=== PATIENT | female | born 1980 | race Caucasian/White ===

== ENCOUNTER 2017-12-14 18:37 | Emergency (ER) | payer SELFPAY ==
[~2017-12-14] VITALS: Ht 165.1 cm; Wt 79.4 kg
--- NOTE | 2017-12-14 18:55 | ED.ADGEN ---
Adult General Chief Complaint Chief Complaint ".. I caught my foot between the payment edge and fell on this Lt elbow... " HPI HPI Patient is a 37 year old female who presents with above hx and complaints of contusion to Lt elbow and wrist a fall. Pt. is Rt. hand dominate. No other injuries reported. Distal neurovascular intact. Pain in Rt elbow with inversion and pronation. Pain with flexion and extension. Small abrasion at elbow Lt.. Small abrasion contusion Rt 5th finger. Review of Systems Review of Systems Constitutional: Denies fever or chills [] Eyes: Denies change in visual acuity, redness, or eye pain [] HENT: Denies nasal congestion or sore throat [] Respiratory: Denies cough or shortness of breath [] Cardiovascular: No additional information not addressed in HPI [] GI: Denies abdominal pain, nausea, vomiting, bloody stools or diarrhea [] : Denies dysuria or hematuria [] Musculoskeletal: Denies back pain or joint pain []Injury to Lt. elbow, and Rt. 5th finger. Lt. wrist pain. Integument: Denies rash or skin lesions [] Neurologic: Denies headache, focal weakness or sensory changes [] Endocrine: Denies polyuria or polydipsia [] All other systems were reviewed and found to be within normal limits, except as documented in this note. Family History Family History Non-contributory Current Medications Current Medications Current Medications Medications (Trade) Dose Ordered Sig/[facility] Start Time Stop Time Status Last Admin Dose Admin Ketorolac Tromethamine (Toradol) 60 mg 1X ONCE 12/14/17 19:15 12/14/17 19:16 DC 12/14/17 19:22 60 MG See nursing for home meds. Allergies Allergies Allergies Coded Allergies Type Severity Reaction Last Updated Verified No Known Drug Allergies 12/14/17 No Physical Exam Physical Exam Constitutional: Well developed, well nourished, no acute distress, non-toxic appearance. [] HENT: Normocephalic, atraumatic, bilateral external ears normal, oropharynx moist, no oral exudates, nose normal. [] Eyes: PERRLA, EOMI, conjunctiva normal, no discharge. [] Neck: Normal range of motion, no tenderness, supple, no stridor. [] Cardiovascular:Heart rate regular rhythm, no murmur [] Lungs & Thorax: Bilateral breath sounds clear to auscultation [] Abdomen: Bowel sounds normal, soft, no tenderness, no masses, no pulsatile masses. [Obese. Skin: Warm, dry, no erythema, no rash. [] Back: No tenderness, no CVA tenderness. [] Extremities: No tenderness, no cyanosis, no clubbing, ROM intact, no edema. Except findings in [] Lt. elbow, wrist and rt fifth finger contusion. Neurologic: Alert and oriented X 3, normal motor function, normal sensory function, no focal deficits noted. [] Psychologic: Affect anxious, judgement normal, mood normal. [] Current Patient Data Vital Signs Vital Signs Date Time Temp Pulse Resp B/P (MAP) Pulse Ox O2 Delivery O2 Flow Rate FiO2 12/14/17 20:20 89 16 131/83 (99) 98 Room Air 12/14/17 18:43 98.3 EKG EKG [] Radiology/Procedures Radiology/Procedures My interpretation of Lt elbow and wrist. No obvious fx. , questionable area Rt. proximal radial head. [] Course & Med Decision Making Course & Med Decision Making Pertinent Labs and Imaging studies reviewed. (See chart for details). Wear derek, and sling. Elevation. ice packs as needed for discomfort. Take tylenol and ibuprofen for discomfort. Follow up with primary. Return if any concerns. May have frx of proximal radial head. Repeat X-ray in two weeks may identify a callus from a fx. [] Final Impression Final Impression 1. Lt. elbow contusion[] and Sprain 2. Lt wrist sprain 3. Rt 5th. contusion Problems: Dragon Disclaimer Dragon Disclaimer This electronic medical record was generated, in whole or in part, using a voice recognition dictation system. JULIANE POP MD Dec 14, 2017 18:55
[2017-12-14] MEDS ORDERED: KETOROLAC 60 MG/2 ML VIAL. IM ONE (19:15)
[2017-12-14] MEDS ORDERED: HYDR-79 PO (19:34)
[2017-12-14 20:20] VITALS: BP 131/83
--- NOTE | 2017-12-15 09:38 | RAD ---
Left elbow x-rays 3 views History: Fall injury. Findings: No abnormal elevation of the fat pads to suggest a joint effusion. No fracture, dislocation or arthritic change. The soft tissues are unremarkable. Impression: No acute osseous injury.
--- NOTE | 2017-12-15 09:40 | RAD ---
Left hand x-rays 3 views History: Fall injury. Findings: On the lateral film at the dorsal aspect of the proximal carpal row and radius there is a faint 2 mm calcification could represent a chronic ossicle although a small cortical avulsion fracture is not excluded, there is no donor site from the adjacent bone to confirm a fracture. No fracture or dislocation of the hand evident. Impression: No acute osseous injury of the left hand. 2 mm calcification dorsal of the proximal carpal row as described above.
== END 2017-12-14 20:25 | disposition home or self-care (01) ==
LOC: ER 18:37
DX: S53.402A Unspecified sprain of left elbow, initial encounter (principal); S63.502A Unspecified sprain of left wrist, initial encounter; S60.051A Contusion of right little finger without damage to nail, initial encounter; W19.XXXA Unspecified fall, initial encounter; Y93.89 Activity, other specified; Y99.8 Other external cause status; Y92.89 Other specified places as the place of occurrence of the external cause
CPT/HCPCS: 73080; 73130; 96372; 99284; J1885

== ENCOUNTER 2018-07-13 17:16 | Emergency (ER) | payer SELFPAY ==
[~2018-07-13] VITALS: Ht 165.1 cm; Wt 79.4 kg
[~2018-07-13 17:16] MED LIST: HYDR-79 PO
[2018-07-13] MEDS ORDERED: IV NORMAL SALINE 1,000ML 1,000 ML IV SCH (17:42)
--- NOTE | 2018-07-13 17:58 | PHYS DOC ---
Past History Past Medical History: Kidney Stones Past Surgical History: Cholecystectomy, , Tubal ligation, Other Alcohol Use: None Drug Use: None Adult General Chief Complaint Chief Complaint: FLANK PAIN HPI HPI Patient is a 37 year old female who presents with complaining onset of right flank pain about 45 minutes prior to arrival to ER as a constant and sharp pain with radiation to right lower quadrant and rated her pain 8/10 area patient denies nausea and vomiting and urinary symptom. Patient states she had the same pain with previous episodes of kidney stone. Patient states she had 1 episodes of loose stool on over before starting her pain and denies fever and chills, chest pain, shortness of breath. Review of Systems Review of Systems Constitutional: Denies fever or chills [] Eyes: Denies change in visual acuity, redness, or eye pain [] HENT: Denies nasal congestion or sore throat [] Respiratory: Denies cough or shortness of breath [] Cardiovascular: No additional information not addressed in HPI [] GI: Reports abdominal pain, denies nausea, vomiting, bloody stools : Denies dysuria or hematuria , reports flank pain] Musculoskeletal: Denies back pain or joint pain [] Integument: Denies rash or skin lesions [] Neurologic: Denies headache, focal weakness or sensory changes [] Endocrine: Denies polyuria or polydipsia [] All other systems were reviewed and found to be within normal limits, except as documented in this note. Current Medications Current Medications Current Medications Medications (Trade) Dose Ordered Sig/[facility] Start Time Stop Time Status Last Admin Dose Admin Ketorolac Tromethamine (Toradol 30mg Vial) 30 mg 1X ONCE 07/13/18 18:15 07/13/18 18:16 Ondansetron HCl (Zofran) 4 mg 1X ONCE 07/13/18 18:15 07/13/18 18:16 Sodium Chloride 1,000 ml @ 1,000 mls/hr Q1H 07/13/18 17:42 07/13/18 18:41 Allergies Allergies Allergies Coded Allergies Type Severity Reaction Last Updated Verified No Known Drug Allergies 12/14/17 No Physical Exam Physical Exam Constitutional: Well developed, well nourished, mild distress, non-toxic appearance. [] HENT: Normocephalic, atraumatic Eyes: PERRLA, EOMI, conjunctiva normal, no discharge. [] Neck: Normal range of motion, no tenderness, supple, no stridor. [] Cardiovascular:Heart rate regular rhythm, no murmur [] Lungs & Thorax: Bilateral breath sounds clear to auscultation [] Abdomen: Bowel sounds normal, soft, no tenderness, no masses, no pulsatile masses. [] Skin: Warm, dry, no erythema, no rash. [] Back: No tenderness, no CVA tenderness. [] Extremities: No tenderness, no cyanosis, no clubbing, ROM intact, no edema. [] Neurologic: Alert and oriented X 3, normal motor function, normal sensory function, no focal deficits noted. [] Psychologic: Affect anxious, judgement normal, mood normal. [] Current Patient Data Vital Signs Vital Signs Date Time Temp Pulse Resp B/P (MAP) Pulse Ox O2 Delivery O2 Flow Rate FiO2 07/13/18 17:28 98.2 89 18 100 Room Air EKG EKG [] Radiology/Procedures Radiology/Procedures [] 1. Bilateral nephrolithiasis with the largest measuring 8 mm in the right kidney. There is minimal fat stranding identified about the right kidney. Correlate for mild pyelonephritis. 2. Faint fat stranding identified about the pancreas probably due to breathing motion artifact and less likely pancreatitis. Correlate with lab values. Impressions: kidney stones Course & Med Decision Making Course & Med Decision Making Pertinent Labs and Imaging are pending. Evaluation of patient in ER showed 37-year-old female patient with history of previous kidney stone presented to ER with complaining of sudden onset of right flank pain. Patient has pending labs and CT of abdomen and pelvis. Patient care transferred to Dr. Pruitt at 1800. Dragvika Disclaimer Dragon Disclaimer This electronic medical record was generated, in whole or in part, using a voice recognition dictation system. Departure Departure: Impression: Primary Impression: Right flank pain Referrals: PCP,NO (PCP) Scripts Hydrocodone Bit/Acetaminophen (NORCO 5-325 TABLET) 1 Each Tablet 1-2 TAB PO Q4-6HRS for pain, #40 TAB Prov: TRINA PRUITT MD 07/13/18 SATINDER VALLES MD Jul 13, 2018 17:58 TRINA PRUITT MD Jul 13, 2018 19:04
[2018-07-13 18:12] LABS: BASO # 0.1 x10^3/uL (0.0-0.2); BASO % 1 % (0-3); EOS # 0.3 x10^3/uL (0.0-0.7); EOS % 4 % (0-3); HEMATOCRIT 26.4 % (36.0-47.0); HEMOGLOBIN 7.8 g/dL (12.0-15.5); LYMPH % 24 % (24-48); MEAN CORPUSCULAR HEMOGLOBIN 18 pg (25-35); MEAN CORPUSCULAR HGB CONC 30 g/dL (31-37); MEAN CORPUSCULAR VOLUME 61 fL (79-100); MONO % 12 % (0-9); NEUT # 5.1 x10^3uL (1.8-7.7); NEUT % 60 % (31-73); PLATELET COUNT 237 x10^3/uL (140-400); RED BLOOD COUNT 4.29 x10^6/uL (3.50-5.40); RED CELL DISTRIBUTION WIDTH 20.8 % (11.5-14.5); WHITE BLOOD COUNT 8.4 x10^3/uL (4.0-11.0)
[2018-07-13 18:14] LABS: BACTERIA,URINE 0 /HPF (0-FEW); BILIRUBIN,URINE NEG (NEG); CLARITY,URINE CLOUDY; COLOR,URINE YELLOW; GLUCOSE,URINE NEG (NEG); NITRITE,URINE NEG (NEG); RBC,URINE 20-40 /HPF (0-2); UROBILINOGEN,URINE 0.2 mg/dL (0.2 mg/dL); WBC,URINE 0 /HPF (0-4)
[2018-07-13 18:15] LABS: SQUAMOUS EPITHELIAL CELL,UR OCC /LPF
[2018-07-13] MEDS ORDERED: ONDANSETRON PF 4 MG/2 ML VIAL. IV ONE (18:15)
[2018-07-13] MEDS ORDERED: KETOROLAC 30 MG/ML VIAL. IV ONE (18:15)
[2018-07-13 18:26] LABS: ALBUMIN 3.8 g/dL (3.4-5.0); ALBUMIN/GLOBULIN RATIO 1.1 (1.0-1.7); CALCIUM 8.8 mg/dL (8.5-10.1); CREATININE 0.8 mg/dL (0.6-1.0); GFR 81.2; TOTAL BILIRUBIN 0.2 mg/dL (0.2-1.0); TOTAL PROTEIN 7.3 g/dL (6.4-8.2)
--- NOTE | 2018-07-13 18:26 | RAD ---
Examination: CT of the abdomen pelvis without contrast HISTORY: History of right flank pain COMPARISON: None available TECHNIQUE: Axial CT images of the abdomen pelvis were performed without contrast. Coronal and sagittal reformats are performed Exposure: One or more of the following individualized dose reduction techniques were utilized for this examination: 1. Automated exposure control 2. Adjustment of the mA and/or kV according to patient size 3. Use of iterative reconstruction technique FINDINGS: Minimal bibasilar lung atelectasis. No evidence of free air identified in the abdomen. The visualized noncontrasted liver, spleen, adrenals grossly appears unremarkable. Cholecystectomy clips identified. The stomach is mildly distended. Questionable minimal fat stranding identified about the pancreas. The small bowel is nondilated. The appendix is normal. Feces and gas noted in the colon throughout. Urinary bladder is mildly distended. There are multiple intrarenal collecting system calculi identified in the bilateral kidneys with the largest measuring 8 mm on the right. Minimal fat stranding identified about the right kidney. No evidence of hydronephrosis. No evidence of lytic bony destructive lesion. IMPRESSION: 1. Bilateral nephrolithiasis with the largest measuring 8 mm in the right kidney. There is minimal fat stranding identified about the right kidney. Correlate for mild pyelonephritis. 2. Faint fat stranding identified about the pancreas probably due to breathing motion artifact and less likely pancreatitis. Correlate with lab values. Electronically signed by: Roney Charles MD (07/13/2018 6:23 PM) [facility]
[2018-07-13 18:28] LABS: POTASSIUM 4.2 mmol/L (3.5-5.1)
[2018-07-13 18:42] LABS: ANISOCYTOSIS SLIGHT; HYPOCHROMIA MOD; PLT ESTIMATE ADEQUATE (ADEQUATE); POLYCHROMASIA SLIGHT
[2018-07-13 18:43] LABS: MICROCYTOSIS MOD; OVALOCYTES OCC; SCHISTOCYTES OCC; SPHEROCYTES OCC; TEAR DROP CELLS OCC
[2018-07-13] MEDS ORDERED: HYDROmorphone PF 1 MG/ML DISP.SYRIN IV ONE (19:00)
[2018-07-13] MEDS ORDERED: HYDR-3165 PO (19:02)
[2018-07-13 19:19] VITALS: BP 107/56
== END 2018-07-13 19:29 | disposition home or self-care (01) ==
LOC: ER 17:16
DX: N20.0 Calculus of kidney (principal); R19.7 Diarrhea, unspecified; Z87.442 Personal history of urinary calculi; Z90.49 Acquired absence of other specified parts of digestive tract; Z98.890 Other specified postprocedural states; Z98.51 Tubal ligation status
CPT/HCPCS: 36415; 74176; 80053; 81001; 83690; 85025; 96361; 96374; 96375; 99285; J1170; J1885; J2405; J7030

== ENCOUNTER 2018-08-29 08:52 | Emergency (ER) | payer SELFPAY ==
[~2018-08-29] VITALS: Ht 165.1 cm; Wt 81.6 kg
[~2018-08-29 08:52] MED LIST changes: +HYDR-1179 PO; +HYDR-3165 PO; -HYDR-79 PO
[2018-08-29 09:09] VITALS: BP 114/70
--- NOTE | 2018-08-29 09:24 | RAD ---
EXAM: AP, oblique and lateral views of the left knee DATE: 08/29/2018 9:07 AM INDICATION: KNEE AND HAND PAIN S/P FALL COMPARISON: No Prior FINDINGS: No evidence of acute fracture or dislocation. Joint spaces are preserved without significant degenerative/proliferative change. Trace left knee joint effusion. IMPRESSION: No evidence of acute fracture or dislocation. Electronically signed by: Melo Lezama MD (08/29/2018 9:20 AM) [facility]
--- NOTE | 2018-08-29 09:31 | RAD ---
EXAM: PA, oblique and lateral views of the right hand DATE: 08/29/2018 9:12 AM INDICATION: HAND AND KNEE PAIN S/P FALL COMPARISON: Left hand radiographs 12/14/2017 FINDINGS: Hyperextension of the right small finger MCP joint is grossly similar to the contralateral side on prior imaging 12/14/2017 and may be physiologic for this patient. Soft tissue swelling about the right ring and index fingers is seen. No definite associated fracture or retained foreign body. Joint spaces are preserved without significant degenerative/proliferative change. IMPRESSION: 1. Soft tissue swelling about the right index and ring fingers without associated fracture or definite retained foreign body. 2. Of note there is hyperextension at the right fifth MCP joint. This is similar to the prior images on the left hand and may be physiologic for this patient. Electronically signed by: Melo Lezama MD (08/29/2018 9:27 AM) [facility]
[2018-08-29] MEDS ORDERED: TRAM50TA PO (09:34)
--- NOTE | 2018-08-29 09:35 | PHYS DOC ---
Past History Past Medical History: Kidney Stones Past Surgical History: Cholecystectomy, , Tubal ligation, Other Alcohol Use: None Drug Use: None Adult General Chief Complaint Chief Complaint: KNEE INJURY HPI HPI 37-year-old female presents with report of left knee pain status post mechanical trip and fall which occurred last night. Patient reports she had gotten up in the middle of the night and ended up tripping and came down directly onto her knee. Reports pain with ambulation and bearing weight. Patient also reports tried to catch herself with her right hand and thinks she might have injured her right ring finger. Patient does report some swelling and bruising to right ring finger. Denies laceration. Denies head injury or neck pain. Denies loss of consciousness. Denies . Reports history of tubal ligation. Review of Systems Review of Systems Constitutional: Denies fever or chills [] GI: Denies nausea, vomiting : Denies dysuria or hematuria [] Musculoskeletal: Reports left knee pain and right ring finger Integument: Reports contusion and ecchymosis Neurologic: Denies headache, focal weakness or sensory changes [] Complete systems were reviewed and found to be within normal limits, except as documented in this note. Current Medications Current Medications Current Medications Medications (Trade) Dose Ordered Sig/[facility] Start Time Stop Time Status Last Admin Dose Admin Tramadol HCl (Ultram) 50 mg 1X ONCE 08/29/18 09:45 08/29/18 09:46 Allergies Allergies Allergies Coded Allergies Type Severity Reaction Last Updated Verified No Known Drug Allergies 12/14/17 No Physical Exam Physical Exam Constitutional: Well developed, well nourished, no acute distress, non-toxic appearance. [] HENT: Normocephalic, atraumatic Eyes: Conjunctiva normal, no discharge. [] Neck: Normal range of motion, no tenderness, supple, no meningeal signs Cardiovascular: R radial pulse and L PT/DP +2/4, CR < 2 sec Lungs & Thorax: No respiratory distress Skin: Warm, dry, mild swelling and ecchymosis to right PIP of 4th finger Extremities: Pain to palpation and ROM of left knee, joint intact, no laxity noted, no ecchymosis or swelling, small abrasion noted, tenderness to lateral aspect of knee, Right ring finger tendon function intact, tenderness to PIP and with some mild swelling and ecchymosis Neurologic: Alert and oriented X 3, normal motor function, normal sensory function, no focal deficits noted. [] Psychologic: Affect normal, judgement normal, mood normal. [] Current Patient Data Vital Signs Vital Signs Date Time Temp Pulse Resp B/P (MAP) Pulse Ox O2 Delivery O2 Flow Rate FiO2 08/29/18 09:09 98.2 88 18 100 Room Air EKG EKG [] Radiology/Procedures Radiology/Procedures PROCEDURE: KNEE LEFT 3V EXAM: AP, oblique and lateral views of the left knee DATE: 08/29/2018 9:07 AM INDICATION: KNEE AND HAND PAIN S/P FALL COMPARISON: No Prior FINDINGS: No evidence of acute fracture or dislocation. Joint spaces are preserved without significant degenerative/proliferative change. Trace left knee joint effusion. IMPRESSION: No evidence of acute fracture or dislocation. Electronically signed by: Melo Lezama MD (08/29/2018 9:20 AM) [facility] PROCEDURE: HAND RIGHT 3V EXAM: PA, oblique and lateral views of the right hand DATE: 08/29/2018 9:12 AM INDICATION: HAND AND KNEE PAIN S/P FALL COMPARISON: Left hand radiographs 12/14/2017 FINDINGS: Hyperextension of the right small finger MCP joint is grossly similar to the contralateral side on prior imaging 12/14/2017 and may be physiologic for this patient. Soft tissue swelling about the right ring and index fingers is seen. No definite associated fracture or retained foreign body. Joint spaces are preserved without significant degenerative/proliferative change. IMPRESSION: 1. Soft tissue swelling about the right index and ring fingers without associated fracture or definite retained foreign body. 2. Of note there is hyperextension at the right fifth MCP joint. This is similar to the prior images on the left hand and may be physiologic for this patient. Electronically signed by: Melo Lezama MD (08/29/2018 9:27 AM) [facility] Course & Med Decision Making Course & Med Decision Making Pertinent Labs and Imaging studies reviewed. (See chart for details) [] Dragon Disclaimer Dragon Disclaimer This electronic medical record was generated, in whole or in part, using a voice recognition dictation system. Splinting Splinting : Location: Right ring finger Pre-Made Type: metal (finger splint) Pre-Proc Neuro Vasc Exam: normal Post-Proc Neuro Vasc Exam: normal, unchanged from pre-exam Progress Splint #2 Left knee, BRANDI bandage placed, normal pre and post neuro-vascular exam Departure Departure: Impression: Primary Impression: Contusion of knee, left Additional Impression: Sprain of finger of right hand Disposition: 01 HOME, SELF-CARE Condition: STABLE Referrals: PCPMICHEAL (PCP) RAVINDRA MCCOLLUM MD Patient Instructions: Contusion, [id number], Crutch Use, [id number], Finger Sprain, [id number], Knee Pain, [id number] Scripts Tramadol Hcl (TRAMADOL HCL) 50 Mg Tablet 50 MG PO PRN Q6HRS PRN for PAIN, #10 TAB Prov: GEOVANNA HAMMOND DO 08/29/18 Problem Qualifiers Primary Impression: Contusion of knee, left Encounter type: initial encounter Qualified Codes: S80.02XA - Contusion of left knee, initial encounter Additional Impression: Sprain of finger of right hand Encounter type: initial encounter Finger: ring finger Sprain of finger site : interphalangeal joint Qualified Codes: S63.634A - Sprain of interphalangeal joint of right ring finger, initial encounter GEOVANNA HAMMOND DO Aug 29, 2018 09:34
[2018-08-29] MEDS ORDERED: traMADol 50 MG TABLET PO ONE (09:45)
== END 2018-08-29 09:45 | disposition home or self-care (01) ==
LOC: ER 08:52
DX: S63.634A Sprain of interphalangeal joint of right ring finger, initial encounter (principal); S80.02XA Contusion of left knee, initial encounter; Z87.442 Personal history of urinary calculi; W01.0XXA Fall on same level from slipping, tripping and stumbling without subsequent striking against object, initial encounter; Y93.89 Activity, other specified; Y92.89 Other specified places as the place of occurrence of the external cause; Y99.8 Other external cause status
CPT/HCPCS: 29130; 73130; 73562; 99283

== ENCOUNTER 2018-11-23 13:54 | Emergency (ER) | payer OTHER ==
[~2018-11-23] VITALS: Ht 165.1 cm; Wt 81.6 kg
[~2018-11-23 13:54] MED LIST changes: +TRAM50TA PO
--- NOTE | 2018-11-23 14:49 | RAD ---
Lumbar spine 3 views: Reason for examination: Twisted in shower on 11/22/2018 and now with severe low back pain. The vertebral bodies of the lumbar spine appear to be normally aligned anteriorly and posteriorly. No acute fracture or subluxation is seen. Posterior elements appear to be intact. The intervertebral discs are maintained. No abnormality seen at the sacrum or sacroiliac joints. IMPRESSION: No acute abnormality evident in the lumbar spine. Electronically signed by: Sandy Duke MD (11/23/2018 2:46 PM) [facility]
[2018-11-23] MEDS ORDERED: CYCL-331 PO (14:52)
[2018-11-23] MEDS ORDERED: PRED-220 PO (14:52)
--- NOTE | 2018-11-23 14:53 | PHYS DOC ---
Past History Past Medical History: Kidney Stones Past Surgical History: Cholecystectomy, , Tubal ligation, Other Alcohol Use: None Drug Use: None Adult General Chief Complaint Chief Complaint: BACK PAIN OR INJURY [facility] HPI 38-year-old female presents with lumbar back pain. The patient was bending over the shower yesterday evening when she felt a pulling sensation. She then stood up and had a spasm in the low part of her back on both sides. She now has an intermittent tingling in sensation down her posterior legs on both sides. This stops above the knee. Patient has a history of herniated disks in the lumbar. She has not had any trauma or falls recently. She has taken tramadol at home for pain but it does not help with muscle spasms. She does not currently use muscle relaxers. She denies fever or chills. She denies numbness or paresthesia in her perineal area. No loss of bowel or bladder. Review of Systems Review of Systems Constitutional: Denies fever or chills [] Eyes: Denies change in visual acuity, redness, or eye pain [] HENT: Denies nasal congestion or sore throat [] Respiratory: Denies cough or shortness of breath [] Cardiovascular: No additional information not addressed in HPI [] GI: Denies abdominal pain, nausea, vomiting, bloody stools or diarrhea [] : Denies dysuria or hematuria [] Musculoskeletal: Lumbar back pain[] Integument: Denies rash or skin lesions [] Neurologic: Denies headache, focal weakness or sensory changes [] Endocrine: Denies polyuria or polydipsia [] All other systems were reviewed and found to be within normal limits, except as documented in this note. Allergies Allergies Allergies Coded Allergies Type Severity Reaction Last Updated Verified No Known Drug Allergies 12/14/17 No Physical Exam Physical Exam Constitutional: Well developed, well nourished, no acute distress, non-toxic appearance. [] HENT: Normocephalic, atraumatic, bilateral external ears normal, oropharynx moist, no oral exudates, nose normal. [] Eyes: PERRLA, EOMI, conjunctiva normal, no discharge. [] Neck: Normal range of motion, no tenderness, supple, no stridor. [] Cardiovascular:Heart rate regular rhythm, no murmur [] Lungs & Thorax: Bilateral breath sounds clear to auscultation [] Abdomen: Bowel sounds normal, soft, no tenderness, no masses, no pulsatile masses. [] Skin: Warm, dry, no erythema, no rash. [] Back: Tenderness in the L4-L5 region. Paraspinal muscle spasms bilaterally in this area.[] Extremities: No tenderness, no cyanosis, no clubbing, ROM intact, no edema. [] Neurologic: Alert and oriented X 3, normal motor function, normal sensory function, no focal deficits noted. [] Psychologic: Affect normal, judgement normal, mood normal. [] Current Patient Data Vital Signs Vital Signs Date Time Temp Pulse Resp B/P (MAP) Pulse Ox O2 Delivery O2 Flow Rate FiO2 11/23/18 14:03 98.1 88 20 100 Room Air 11/23/18 14:03 136/69 (91) EKG EKG [] Radiology/Procedures Radiology/Procedures [] Impressions: Lumbar spine 3 views: Reason for examination: Twisted in shower on 11/22/2018 and now with severe low back pain. The vertebral bodies of the lumbar spine appear to be normally aligned anteriorly and posteriorly. No acute fracture or subluxation is seen. Posterior elements appear to be intact. The intervertebral discs are maintained. No abnormality seen at the sacrum or sacroiliac joints. IMPRESSION: No acute abnormality evident in the lumbar spine. Electronically signed by: Sandy Read MD (11/23/2018 2:46 PM) [facility] DICTATED AND SIGNED BY: SANDY READ MD DATE: 11/23/18 1446 CC: JIM MEDINA DO; PCP,MICHEAL ~ Course & Med Decision Making Course & Med Decision Making Pertinent Labs and Imaging studies reviewed. (See chart for details) Patient's x-rays are negative for acute findings. I will discharge the patient on 5 days of prednisone as well as Flexeril. She will take her already prescribed tramadol for pain as needed. She is stable for discharge at this time. [] Dragon Disclaimer Dragon Disclaimer This electronic medical record was generated, in whole or in part, using a voice recognition dictation system. Departure Departure: Impression: Primary Impression: Lumbar back pain with radiculopathy affecting left lower extremity Additional Impression: Lumbar back pain with radiculopathy affecting right lower extremity Disposition: 01 HOME, SELF-CARE Condition: STABLE Referrals: PCP,NO (PCP) Patient Instructions: Lumbosacral Radiculopathy Scripts Prednisone (PREDNISONE) 10 Mg Tablet 50 MG PO DAILY for lumbar radiculopathy for 5 Days, #25 TAB Prov: JIM MEDINA DO 11/23/18 Cyclobenzaprine Hcl (CYCLOBENZAPRINE HCL) 10 Mg Tablet 1 TAB PO TID PRN for MUSCLE SPASMS, #30 TAB Prov: JIM MEDINA DO 11/23/18 Problem Qualifiers JIM MEDINA DO Nov 23, 2018 14:53
== END 2018-11-23 15:00 | disposition home or self-care (01) ==
LOC: ER 13:54
DX: M54.16 Radiculopathy, lumbar region (principal); Z87.442 Personal history of urinary calculi; Z90.49 Acquired absence of other specified parts of digestive tract; Z98.890 Other specified postprocedural states; Z98.51 Tubal ligation status
CPT/HCPCS: 72100; 99283

== ENCOUNTER 2019-03-11 21:49 | Emergency (ER) | payer OTHER ==
[~2019-03-11] VITALS: Ht 165.1 cm; Wt 81.6 kg
[~2019-03-11 21:49] MED LIST changes: +CYCL-331 PO; +PRED-220 PO
[2019-03-11 22:11] VITALS: BP 121/53
[2019-03-11] MEDS ORDERED: KETOROLAC 30 MG/ML VIAL. IV ONE (22:30)
[2019-03-11 22:46] LABS: U PREG PATIENT NEGATIVE (NEG)
[2019-03-11 22:51] LABS: BACTERIA,URINE 0 /HPF (0-FEW); BILIRUBIN,URINE NEG (NEG); CLARITY,URINE CLOUDY; COLOR,URINE PINK; GLUCOSE,URINE NEG (NEG); NITRITE,URINE NEG (NEG); RBC,URINE >40 /HPF (0-2); SQUAMOUS EPITHELIAL CELL,UR OCC /LPF; UROBILINOGEN,URINE 0.2 mg/dL (0.2 mg/dL)
[2019-03-11] MEDS ORDERED: IV NORMAL SALINE 1,000ML 1,000 ML IV ONE (23:00)
[2019-03-11] MEDS ORDERED: METOCLOPRAMIDE HCL 10 MG/2 ML VIAL. IV ONE (23:00)
[2019-03-11 23:22] LABS: ALBUMIN/GLOBULIN RATIO 1.1 (1.0-1.7); CALCIUM 9.1 mg/dL (8.5-10.1); CREATININE 0.6 mg/dL (0.6-1.0); GFR 112.5; MAGNESIUM 2.1 mg/dL (1.8-2.4); TOTAL BILIRUBIN 0.2 mg/dL (0.2-1.0); TOTAL PROTEIN 7.7 g/dL (6.4-8.2)
[2019-03-11 23:40] LABS: BASO % 0 % (0-3); EOS # 0.5 x10^3/uL (0.0-0.7); EOS % 4 % (0-3); HEMATOCRIT 33.4 % (36.0-47.0); HEMOGLOBIN 9.8 g/dL (12.0-15.5); LYMPH # 2.4 x10^3/uL (1.0-4.8); LYMPH % 19 % (24-48); MEAN CORPUSCULAR HEMOGLOBIN 19 pg (25-35); MEAN CORPUSCULAR HGB CONC 29 g/dL (31-37); MEAN CORPUSCULAR VOLUME 64 fL (79-100); MONO # 1.3 x10^3/uL (0.0-1.1); MONO % 11 % (0-9); NEUT # 8.2 x10^3uL (1.8-7.7); NEUT % 66 % (31-73); PLATELET COUNT 234 x10^3/uL (140-400); RED BLOOD COUNT 5.21 x10^6/uL (3.50-5.40); RED CELL DISTRIBUTION WIDTH 20.9 % (11.5-14.5); WHITE BLOOD COUNT 12.4 x10^3/uL (4.0-11.0)
--- NOTE | 2019-03-11 23:46 | RAD ---
CT scan of the abdomen and pelvis without contrast 03/11/2019 CLINICAL HISTORY: Right flank pain. Hematuria. TECHNIQUE: Unenhanced, contiguous, 3 mm axial sections were obtained through the abdomen and pelvis. One or more of the following individualized dose reduction techniques were utilized for this study: 1. Automated exposure control. 2. Adjustment of the mA and/or kV according to patient size. 3. Use of iterative reconstruction technique. FINDINGS: Comparison study is dated 07/13/2018. Images through the lung bases demonstrate minimal dependent subsegmental atelectasis bilaterally. The liver, spleen, pancreas, and adrenal glands are within normal limits. Multiple nonobstructing calculi are seen scattered throughout both kidneys. These measure 1 mm to 8 mm in size. No renal or ureteral calculus is seen. There is no evidence of significant obstruction of either collecting system. The abdominal aorta tapers normally. Surgical clips are seen within the gallbladder fossa consistent with a cholecystectomy. No free fluid is seen. There is no evidence of bowel obstruction. The appendix is partially visualized and is within normal limits. Images through the pelvis demonstrate the urinary bladder distended with urine. A 2 cm prominent follicle is seen in the left ovary. No free fluid is seen within the pelvis. No distal ureteral calculus is seen. Calcifications are seen within the pelvis consistent with phleboliths. Minimal S-shaped curvature of the thoracolumbar spine is seen. Degenerative changes are seen involving lower thoracic and throughout the lumbar spine and both hips. IMPRESSION: Bilateral nonobstructing renal calculi. No ureteral calculus is seen. There is no evidence of significant obstruction of either collecting system. Electronically signed by: Saeid Tirado MD (03/11/2019 11:43 PM) [facility]
[2019-03-12] MEDS ORDERED: TRAM50TA PO
[2019-03-12] MEDS ORDERED: ONDA4TAB12 PO
--- NOTE | 2019-03-12 | PHYS DOC ---
Past History Past Medical History: Kidney Stones Past Surgical History: Cholecystectomy, , Tubal ligation, Other Smoking: Less than 1pk/day Alcohol Use: None Drug Use: None Adult General Chief Complaint Chief Complaint: FLANK PAIN HPI HPI Patient is a 38-year-old female who presents with right flank pain. He started around 2 hours ago located in the right flank and radiates around to her side to her right groin which she rates at 7/10. She reports hematuria. She has had urinary urgency, but denies burning with urination or increased frequency. She has had diarrhea this afternoon and is currently nauseated. In 2011 she needed a lithotripsy for a kidney stone. Denies . Review of Systems Review of Systems Constitutional: Denies fever or chills Eyes: Denies redness or eye pain HENT: Denies nasal congestion or sore throat Respiratory: Denies cough or shortness of breath Cardiovascular: Denies chest pain or palpitations GI: Reports abdominal pain, nausea, denies vomiting : Denies dysuria, reports hematuria Musculoskeletal: Denies back pain or joint pain Integument: Denies rash or skin lesions Neurologic: Denies headache, focal weakness or sensory changes Complete systems were reviewed and found to be within normal limits, except as documented in this note. Current Medications Current Medications Current Medications Medications (Trade) Dose Ordered Sig/[facility] Start Time Stop Time Status Last Admin Dose Admin Fentanyl Citrate (Fentanyl 2ml Vial) 50 mcg 1X ONCE 03/11/19 23:00 03/11/19 23:01 DC 03/11/19 23:22 50 MCG Ketorolac Tromethamine (Toradol 30mg Vial) 15 mg 1X ONCE 03/11/19 22:30 03/11/19 22:38 DC Metoclopramide HCl (Reglan Vial) 10 mg 1X ONCE 03/11/19 23:00 03/11/19 23:01 DC 03/11/19 23:21 10 MG Sodium Chloride 1,000 ml @ 1,000 mls/hr 1X ONCE 03/11/19 23:00 03/11/19 23:59 03/11/19 23:21 1,000 MLS/HR Allergies Allergies Allergies Coded Allergies Type Severity Reaction Last Updated Verified No Known Drug Allergies 12/14/17 No Physical Exam Physical Exam Constitutional: Well developed, well nourished, no acute distress, non-toxic appearance HENT: Normocephalic, atraumatic, oropharynx moist Eyes: PERRL, EOMI, conjunctiva normal, no discharge Neck: Normal range of motion, no tenderness, supple Cardiovascular: Heart rate normal, regular rhythm Lungs & Thorax: Bilateral breath sounds clear to auscultation, no wheezing Abdomen: Soft, mild tenderness to palpation in lower abdomen, no rebound or guarding. Skin: Warm, dry, no erythema, no rash Back: No tenderness, positive right CVA tenderness Extremities: No tenderness, ROM intact, no edema Neurologic: Alert and oriented X 3, normal motor function, normal sensory function, no focal deficits noted Psychologic: Affect normal, judgement normal, mood normal Current Patient Data Vital Signs Vital Signs Date Time Temp Pulse Resp B/P (MAP) Pulse Ox O2 Delivery O2 Flow Rate FiO2 03/11/19 23:22 20 100 Room Air 03/11/19 22:11 98.2 93 Lab Results Laboratory Tests Test 03/11/19 22:15 03/11/19 22:54 Urine Collection Type Unknown Urine Color Klein Urine Clarity Cloudy Urine pH 7.5 Urine Specific [place] 1.015 Urine Protein Neg (NEG-TRACE) Urine Glucose (UA) Neg mg/dL (NEG) Urine Ketones (Stick) Neg mg/dL (NEG) Urine Blood Large (NEG) Urine Nitrite Neg (NEG) Urine Bilirubin Neg (NEG) Urine Urobilinogen Dipstick 0.2 mg/dL (0.2 mg/dL) Urine Leukocyte Esterase Small (NEG) Urine RBC >40 /HPF (0-2) Urine WBC 1-4 /HPF (0-4) Urine Squamous Epithelial Cells Occ /LPF Urine Bacteria 0 /HPF (0-FEW) Urine Mucus Slight /LPF Urine Test Negative (NEG) White Blood Count 12.4 x10^3/uL (4.0-11.0) H Red Blood Count 5.21 x10^6/uL (3.50-5.40) Hemoglobin 9.8 g/dL (12.0-15.5) L Hematocrit 33.4 % (36.0-47.0) L Mean Corpuscular Volume 64 fL (79-100) L Mean Corpuscular Hemoglobin 19 pg (25-35) L Mean Corpuscular Hemoglobin Concent 29 g/dL (31-37) L Red Cell Distribution Width 20.9 % (11.5-14.5) H Platelet Count 234 x10^3/uL (140-400) Neutrophils (%) (Auto) 66 % (31-73) Lymphocytes (%) (Auto) 19 % (24-48) L Monocytes (%) (Auto) 11 % (0-9) H Eosinophils (%) (Auto) 4 % (0-3) H Basophils (%) (Auto) 0 % (0-3) Neutrophils # (Auto) 8.2 x10^3uL (1.8-7.7) H Lymphocytes # (Auto) 2.4 x10^3/uL (1.0-4.8) Monocytes # (Auto) 1.3 x10^3/uL (0.0-1.1) H Eosinophils # (Auto) 0.5 x10^3/uL (0.0-0.7) Basophils # (Auto) 0.0 x10^3/uL (0.0-0.2) Platelet Estimate Pending Sodium Level 138 mmol/L (136-145) Potassium Level 4.0 mmol/L (3.5-5.1) Chloride Level 103 mmol/L (98-107) Carbon Dioxide Level 24 mmol/L (21-32) Anion Gap 11 (6-14) Blood Urea Nitrogen 12 mg/dL (7-20) Creatinine 0.6 mg/dL (0.6-1.0) Estimated GFR (Cockcroft-Gault) 112.5 BUN/Creatinine Ratio 20 (6-20) Glucose Level 93 mg/dL (70-99) Calcium Level 9.1 mg/dL (8.5-10.1) Magnesium Level 2.1 mg/dL (1.8-2.4) Total Bilirubin 0.2 mg/dL (0.2-1.0) Aspartate Amino Transferase (AST) 15 U/L (15-37) Alanine Aminotransferase (ALT) 28 U/L (14-59) Alkaline Phosphatase 97 U/L (46-116) Total Protein 7.7 g/dL (6.4-8.2) Albumin 4.0 g/dL (3.4-5.0) Albumin/Globulin Ratio 1.1 (1.0-1.7) Lipase 145 U/L (73-393) EKG EKG [] Radiology/Procedures Radiology/Procedures PROCEDURE: CT ABDOMEN PELVIS WO CONTRAST CT scan of the abdomen and pelvis without contrast 03/11/2019 CLINICAL HISTORY: Right flank pain. Hematuria. TECHNIQUE: Unenhanced, contiguous, 3 mm axial sections were obtained through the abdomen and pelvis. One or more of the following individualized dose reduction techniques were utilized for this study: 1. Automated exposure control. 2. Adjustment of the mA and/or kV according to patient size. 3. Use of iterative reconstruction technique. FINDINGS: Comparison study is dated 07/13/2018. Images through the lung bases demonstrate minimal dependent subsegmental atelectasis bilaterally. The liver, spleen, pancreas, and adrenal glands are within normal limits. Multiple nonobstructing calculi are seen scattered throughout both kidneys. These measure 1 mm to 8 mm in size. No renal or ureteral calculus is seen. There is no evidence of significant obstruction of either collecting system. The abdominal aorta tapers normally. Surgical clips are seen within the gallbladder fossa consistent with a cholecystectomy. No free fluid is seen. There is no evidence of bowel obstruction. The appendix is partially visualized and is within normal limits. Images through the pelvis demonstrate the urinary bladder distended with urine. A 2 cm prominent follicle is seen in the left ovary. No free fluid is seen within the pelvis. No distal ureteral calculus is seen. Calcifications are seen within the pelvis consistent with phleboliths. Minimal S-shaped curvature of the thoracolumbar spine is seen. Degenerative changes are seen involving lower thoracic and throughout the lumbar spine and both hips. IMPRESSION: Bilateral nonobstructing renal calculi. No ureteral calculus is seen. There is no evidence of significant obstruction of either collecting system. Electronically signed by: Saeid Tirado MD (03/11/2019 11:43 PM) [facility][] Course & Med Decision Making Course & Med Decision Making Pertinent Labs and Imaging studies reviewed. (See chart for details) Ms. Thomas is a 38-year-old female with a past medical history of kidney stones who presents with right flank pain. The past 2 hours she has had sharp right flank pain that radiates around her side to her right groin. Reports hematuria. Denies dysuria and frequency. On physical exam she has right CVA tenderness with mild lower abdominal tenderness to palpation, with no guarding or rebound. CT scan was obtained and showed bilateral nonobstructing renal calculi, with no ureteral calculus. Symptomatic treatment provided. Urinalysis is not indicative of a urinary tract infection, but does not some hematuria. Possible patient might have passed nonobstructive stone? She is given prescriptions for Tramadol and Zofran for further symptom management. Patient stable for discharge with outpatient follow-up with PCP/Urologist. Urology referral provided. Discussed findings and plan with patient and family, who acknowledge understanding and agreement. Dragon Disclaimer Dragon Disclaimer This electronic medical record was generated, in whole or in part, using a voice recognition dictation system. Departure Departure: Impression: Primary Impression: Flank pain Additional Impression: Hematuria Disposition: HOME, SELF-CARE Condition: STABLE Referrals: PCP,NO (PCP) [employer] Patient Instructions: Flank Pain, [id number], Hematuria, Adult Scripts Tramadol Hcl (TRAMADOL HCL) 50 Mg Tablet 50 MG PO PRN Q6HRS PRN for PAIN, #10 TAB Prov: GEOVANNA HAMMOND DO 03/12/19 Ondansetron (ONDANSETRON ODT) 4 Mg Tab.rapdis 1 TAB PO PRN Q6-8HRS PRN for NAUSEA, #16 TAB Prov: GEOVANNA HAMMOND DO 03/12/19 Problem Qualifiers Additional Impression: Hematuria Hematuria type: unspecified type Qualified Codes: R31.9 - Hematuria, unspecified GEOVANNA HAMMOND DO Mar 12, 2019 00:00
[2019-03-12 00:25] LABS: HYPOCHROMIA SLIGHT; PLT ESTIMATE ADEQUATE (ADEQUATE)
[2019-03-12 00:26] LABS: ANISOCYTOSIS MOD; MICROCYTOSIS MOD
== END 2019-03-12 00:32 | disposition home or self-care (01) ==
LOC: ER 21:49
DX: R10.9 Unspecified abdominal pain (principal); R31.9 Hematuria, unspecified; R39.15 Urgency of urination; F17.200 Nicotine dependence, unspecified, uncomplicated; Z87.442 Personal history of urinary calculi; Z90.49 Acquired absence of other specified parts of digestive tract; Z98.890 Other specified postprocedural states; Z98.51 Tubal ligation status
CPT/HCPCS: 36415; 74176; 80053; 81001; 81025; 83690; 83735; 85025; 87086; 96374; 96375; 99285; J2765; J3010; J7030

== ENCOUNTER 2020-01-20 16:53 | Emergency (ER) | payer SELFPAY ==
[~2020-01-20] VITALS: Ht 165.1 cm; Wt 86.0 kg
[~2020-01-20 16:53] MED LIST changes: +ONDA4TAB12 PO
--- NOTE | 2020-01-20 17:19 | PHYS DOC ---
Past History Past Medical History: Kidney Stones (JIM MEDINA DO) Past Surgical History: Cholecystectomy, , Tubal ligation, Other (JIM MEDINA DO) Smoking: Less than 1pk/day Alcohol Use: None Drug Use: None (JIM MEDINA DO) General Adult EDM: Chief Complaint: FLANK PAIN HPI: HPI: 39-year-old female presents with sudden onset left flank pain. She was just sitting and started to have pain in her left flank rating into her left groin around 2 PM. The pain has continued and not gone away. She is quite uncomfortable. She has a history of kidney stones. She is concerned this is what it is. Her urine is dark in color. She denies fever chills. (JIM MEDINA DO) Review of Systems: Review of Systems: Constitutional: Denies fever or chills Eyes: Denies change in visual acuity HENT: Denies nasal congestion or sore throat Respiratory: Denies cough or shortness of breath Cardiovascular: Denies chest pain or edema GI: Denies abdominal pain, nausea, vomiting, bloody stools or diarrhea : Hematuria Musculoskeletal: Left flank pain Integument: Denies rash Neurologic: Denies headache, focal weakness or sensory changes Endocrine: Denies polyuria or polydipsia Lymphatic: Denies swollen glands Psychiatric: Denies depression or anxiety (JIM MEDINA DO) Heart Score: Risk Factors: Risk Factors: DM, Current or recent (<one month) smoker, HTN, HLP, family history of CAD, obesity. Risk Scores: Score 0 - 3: 2.5% MACE over next 6 weeks - Discharge Home Score 4 - 6: 20.3% MACE over next 6 weeks - Admit for Clinical Observation Score 7 - 10: 72.7% MACE over next 6 weeks - Early Invasive Strategies (JIM MEDINA DO) Allergies: Allergies: Allergies Coded Allergies Type Severity Reaction Last Updated Verified No Known Drug Allergies 12/14/17 No (JIM MEDINA DO) Physical Exam: PE: Constitutional: Well developed, well nourished, obese, no acute distress, non- toxic appearance. [] HENT: Normocephalic, atraumatic, bilateral external ears normal, oropharynx moist, no oral exudates, nose normal. [] Eyes: PERRLA, EOMI, conjunctiva normal, no discharge. [] Neck: Normal range of motion, no tenderness, supple, no stridor. [] Cardiovascular:Heart rate regular rhythm, no murmur [] Lungs & Thorax: Bilateral breath sounds clear to auscultation [] Abdomen: Bowel sounds normal, soft, no tenderness, no masses, no pulsatile masses. [] Skin: Warm, dry, no erythema, no rash. [] Back: No tenderness, mild left-sided CVA tenderness. [] Extremities: No tenderness, no cyanosis, no clubbing, ROM intact, no edema. [] Neurologic: Alert and oriented X 3, normal motor function, normal sensory function, no focal deficits noted. [] Psychologic: Affect normal, judgement normal, mood normal. [] (JIM MEDINA DO) EKG: EKG: [] (JIM MEDINA DO) Radiology/Procedures: Radiology/Procedures: [] (JIM MEDINA DO) Impressions: PROCEDURE: CT ABDOMEN PELVIS WO CONTRAST CT ABDOMEN PELVIS WO CONTRAST INDICATION: Reason: left flank pain, rule out kidney stone / Spl. Instructions: / History: EXAM: Noncontrast CT of the abdomen and pelvis. Coronal and sagittal reformatted images were performed. PQRS compliance statement: One or more of the following individualized dose reduction techniques were utilized for this examination: 1. Automated exposure control 2. Adjustment of the mA and/or kV according to patient size 3. Use of iterative reconstruction technique COMPARISON: 03/11/2019 FINDINGS: No free air, free fluid, or fluid collection. Lower chest: The visualized lower lungs are aerated. No pleural or pericardial effusion. ABDOMEN: Liver: The noncontrast liver is homogeneous in attenuation. Gallbladder and biliary: Cholecystectomy. Normal caliber bile ducts. Spleen: Normal spleen. Pancreas: The noncontrast pancreas is homogeneous in attenuation without peripancreatic inflammatory changes. Adrenal glands: Normal adrenal glands. Kidneys and ureters: No hydronephrosis. 3 mm calculus at the left ureterovesicular junction. Additional bilateral nonobstructive renal calculi measuring up to 8 mm on the right and 5 mammogram the left. GI tract: Normal stomach. Normal caliber small bowel and colon. Normal appendix. Vascular structures: Normal caliber abdominal aorta. Lymph nodes: No lymphadenopathy in the abdomen or pelvis. PELVIS: Genitourinary system: Normal bladder. Uterus is present. SKELETAL STRUCTURES AND SOFT TISSUES: No fracture or destructive lesion in the visualized skeleton. IMPRESSION: 1. Calculus measuring 3 mm at the left ureterovesicular junction. No hydronephrosis. 2. Multiple additional nonobstructive bilateral renal calculi. Electronically signed by: Olegario Paula MD (01/20/2020 6:03 PM) [id number] DICTATED AND SIGNED BY: OLEGARIO PAULA MD DATE: 01/20/20 180 CC: JIM MEDINA DO; PCP,NO ~ (RYAN MCQUEEN Jr. DO) Course & Med Decision Making: Course & Med Decision Making Pertinent Labs and Imaging studies reviewed. (See chart for details) The patient's work-up is pending. I am signing her out to Dr. Mcqueen at 1800. [] (JIM MEDINA DO) Dragon Disclaimer: Dragvika Disclaimer: This electronic medical record was generated, in whole or in part, using a voice recognition dictation system. (JIM MEDINA DO) Departure Departure: Impression: Primary Impression: Ureterolithiasis Disposition: HOME/RESIDENCE PRIOR TO ADM Condition: STABLE Referrals: PCP,NO (PCP) Patient Instructions: Kidney Stones Scripts Ondansetron (ONDANSETRON ODT) 4 Mg Tab.rapdis 1 TAB PO PRN Q6-8HRS PRN for NAUSEA, #12 TAB Prov: RYAN MCQUEEN Jr. DO 01/20/20 Oxycodone Hcl/Acetaminophen (PERCOCET 7.5-325 MG TABLET ) 1 Each Tablet 1 TAB PO PRN Q6HRS PRN for PAIN, #20 TAB Prov: RYAN MCQUEEN Jr., DO 01/20/20 JIM MEDINA DO January 20, 2020 17:19 RYAN MCQUEEN Jr., DO January 20, 2020 18:47
[2020-01-20] MEDS ORDERED: ONDANSETRON PF 4 MG/2 ML VIAL. IVP ONE (17:30)
[2020-01-20] MEDS ORDERED: IV NORMAL SALINE 1,000ML 1,000 ML IV ONE (17:30)
[2020-01-20] MEDS ORDERED: KETOROLAC 30 MG/ML VIAL. IVP ONE (17:30)
[2020-01-20 17:39] LABS: BILIRUBIN,URINE NEG (NEG); CLARITY,URINE TURBID; COLOR,URINE YELLOW; GLUCOSE,URINE 500 mg/dL (NEG)
[2020-01-20 17:40] LABS: NITRITE,URINE NEG (NEG); UROBILINOGEN,URINE 0.2 mg/dL (0.2 mg/dL)
[2020-01-20 17:48] LABS: BASO % 0 % (0-3); EOS # 0.3 x10^3/uL (0.0-0.7); EOS % 3 % (0-3); HEMATOCRIT 35.5 % (36.0-47.0); HEMOGLOBIN 10.2 g/dL (12.0-15.5); LYMPH # 1.8 x10^3/uL (1.0-4.8); LYMPH % 18 % (24-48); MEAN CORPUSCULAR HEMOGLOBIN 20 pg (25-35); MEAN CORPUSCULAR HGB CONC 29 g/dL (31-37); MEAN CORPUSCULAR VOLUME 71 fL (79-100); MONO # 0.7 x10^3/uL (0.0-1.1); MONO % 6 % (0-9); NEUT # 7.6 x10^3uL (1.8-7.7); NEUT % 73 % (31-73); PLATELET COUNT 239 x10^3/uL (140-400); RED BLOOD COUNT 5.03 x10^6/uL (3.50-5.40); RED CELL DISTRIBUTION WIDTH 20.7 % (11.5-14.5); WHITE BLOOD COUNT 10.5 x10^3/uL (4.0-11.0)
[2020-01-20 17:48] LABS: BACTERIA,URINE FEW /HPF (0-FEW); RBC,URINE TNTC /HPF (0-2); SQUAMOUS EPITHELIAL CELL,UR OCC /LPF; WBC,URINE 0 /HPF (0-4)
[2020-01-20 18:01] LABS: CALCIUM 8.4 mg/dL (8.5-10.1); CREATININE 0.7 mg/dL (0.6-1.0); GFR 93.6; POTASSIUM 4.3 mmol/L (3.5-5.1)
--- NOTE | 2020-01-20 18:06 | RAD ---
CT ABDOMEN PELVIS WO CONTRAST INDICATION: Reason: left flank pain, rule out kidney stone / Spl. Instructions: / History: EXAM: Noncontrast CT of the abdomen and pelvis. Coronal and sagittal reformatted images were performed. PQRS compliance statement: One or more of the following individualized dose reduction techniques were utilized for this examination: 1. Automated exposure control 2. Adjustment of the mA and/or kV according to patient size 3. Use of iterative reconstruction technique COMPARISON: 03/11/2019 FINDINGS: No free air, free fluid, or fluid collection. Lower chest: The visualized lower lungs are aerated. No pleural or pericardial effusion. ABDOMEN: Liver: The noncontrast liver is homogeneous in attenuation. Gallbladder and biliary: Cholecystectomy. Normal caliber bile ducts. Spleen: Normal spleen. Pancreas: The noncontrast pancreas is homogeneous in attenuation without peripancreatic inflammatory changes. Adrenal glands: Normal adrenal glands. Kidneys and ureters: No hydronephrosis. 3 mm calculus at the left ureterovesicular junction. Additional bilateral nonobstructive renal calculi measuring up to 8 mm on the right and 5 mammogram the left. GI tract: Normal stomach. Normal caliber small bowel and colon. Normal appendix. Vascular structures: Normal caliber abdominal aorta. Lymph nodes: No lymphadenopathy in the abdomen or pelvis. PELVIS: Genitourinary system: Normal bladder. Uterus is present. SKELETAL STRUCTURES AND SOFT TISSUES: No fracture or destructive lesion in the visualized skeleton. IMPRESSION: 1. Calculus measuring 3 mm at the left ureterovesicular junction. No hydronephrosis. 2. Multiple additional nonobstructive bilateral renal calculi. Electronically signed by: Emre Paula MD (01/20/2020 6:03 PM) [id number]
[2020-01-20 18:07] LABS: ALBUMIN 3.4 g/dL (3.4-5.0); TOTAL BILIRUBIN 0.2 mg/dL (0.2-1.0); TOTAL PROTEIN 6.9 g/dL (6.4-8.2)
[2020-01-20] MEDS ORDERED: MORPHINE SULFATE 2 MG/ML DISP.SYRIN. IV ONE (18:15)
[2020-01-20 18:18] LABS: PLT ESTIMATE ADEQUATE (ADEQUATE)
[2020-01-20 18:19] VITALS: BP 146/98
[2020-01-20 18:19] LABS: ANISOCYTOSIS SLIGHT; HYPOCHROMIA SLIGHT
[2020-01-20 18:23] LABS: MICROCYTOSIS MOD; OVALOCYTES FEW
[2020-01-20] MEDS ORDERED: ONDA4TAB12 PO (18:46)
[2020-01-20] MEDS ORDERED: OXYC1TAB19 PO (18:46)
[2020-01-20] MEDS ORDERED: TRAM50TA PO (18:52)
== END 2020-01-20 18:55 | disposition home or self-care (01) ==
LOC: ER 16:53
DX: N20.1 Calculus of ureter (principal); F17.200 Nicotine dependence, unspecified, uncomplicated; Z87.442 Personal history of urinary calculi; Z90.49 Acquired absence of other specified parts of digestive tract; Z98.890 Other specified postprocedural states; Z98.51 Tubal ligation status
CPT/HCPCS: 36415; 74176; 80053; 81001; 81025; 85025; 96374; 96375; 99284; J1885; J2270; J2405; J7030

== ENCOUNTER 2020-10-14 17:19 | Emergency (ER) | payer OTHER ==
[~2020-10-14] VITALS: Ht 165.1 cm; Wt 86.0 kg
[~2020-10-14 17:19] MED LIST changes: +OXYC1TAB19 PO
[2020-10-14 18:16] LABS: COLOR,URINE PINK
[2020-10-14 18:17] LABS: BILIRUBIN,URINE NEG (NEG); CLARITY,URINE HAZY; GLUCOSE,URINE 100 mg/dL (NEG); NITRITE,URINE NEG (NEG); RBC,URINE >40 /HPF (0-2); UROBILINOGEN,URINE 0.2 mg/dL (0.2 mg/dL)
[2020-10-14 18:18] LABS: BACTERIA,URINE FEW /HPF (0-FEW); SQUAMOUS EPITHELIAL CELL,UR MANY /LPF
--- NOTE | 2020-10-14 18:28 | PHYS DOC ---
Past History Past Medical History: Kidney Stones Past Surgical History: Cholecystectomy, , Tubal ligation, Other Smoking: Less than 1pk/day Alcohol Use: None Drug Use: None Adult General Chief Complaint Chief Complaint: FLANK PAIN HPI HPI Patient is a 39-year-old female, otherwise healthy presents with a chief complaint of right flank pain. Patient has a history of renal lithiasis, in her past and passed a 4 mm stone approximately a month ago. States this feels similar. States it started about 2 to 3 hours before coming into the emergency department, is in the right flank with a little radiation down to her groin, 7 out of 10, sharp in nature with associated mild hematuria. Denies any recent traumas, illnesses, fevers, chest pain, shortness of breath, other abdominal pain, dysuria, blood in the stool. Review of Systems Review of Systems Review of systems otherwise unremarkable except noted in HPI Current Medications Current Medications Current Medications Medications (Trade) Dose Ordered Sig/Linda Start Time Stop Time Status Last Admin Dose Admin Ondansetron HCl (Zofran Odt) 4 mg 1X ONCE 10/14/20 18:30 10/14/20 18:31 UNV Oxycodone/ Acetaminophen (Percocet 5/325) 2 tab 1X ONCE 10/14/20 18:30 10/14/20 18:31 UNV Allergies Allergies Allergies Coded Allergies Type Severity Reaction Last Updated Verified No Known Drug Allergies 12/14/17 No Physical Exam Physical Exam Constitutional: Well developed, well nourished, no acute distress, non-toxic appearance. [] HENT: Normocephalic, atraumatic, bilateral external ears normal, oropharynx moist, no oral exudates, nose normal. [] Eyes: conjunctiva normal, no discharge. [] Cardiovascular: Tachycardia, rhythm regular Lungs & Thorax: Bilateral breath sounds clear to auscultation [] Abdomen: Bowel sounds normal, soft, no tenderness, no masses, no pulsatile masses. [] Skin: Warm, dry, no erythema, no rash. [] Back: No tenderness, right-sided CVA tenderness to palpation [] Extremities: No tenderness, no cyanosis, no clubbing, ROM intact, no edema. [] Neurologic: Alert and oriented X 3, normal motor function, normal sensory function, no focal deficits noted. [] Psychologic: Affect normal, judgement normal, mood normal. [] Current Patient Data Vital Signs Vital Signs Date Time Temp Pulse Resp B/P (MAP) Pulse Ox O2 Delivery O2 Flow Rate FiO2 10/14/20 17:50 97.8 112 16 131/71 (91) 96 Room Air Lab Results Laboratory Tests Test 10/14/20 17:48 10/14/20 17:54 Urine Collection Type Unknown Urine Color [place] Urine Clarity Hazy Urine pH 8.0 Urine Specific [place] 1.020 Urine Protein Trace (NEG-TRACE) Urine Glucose (UA) 100 mg/dL (NEG) Urine Ketones (Stick) Neg mg/dL (NEG) Urine Blood Large (NEG) Urine Nitrite Neg (NEG) Urine Bilirubin Neg (NEG) Urine Urobilinogen Dipstick 0.2 mg/dL (0.2 mg/dL) Urine Leukocyte Esterase Trace (NEG) Urine RBC >40 /HPF (0-2) Urine WBC 5-10 /HPF (0-4) Urine Squamous Epithelial Cells Many /LPF Urine Bacteria Few /HPF (0-FEW) POC Urine HCG, Qualitative hcg negative (Negative) EKG EKG [] Radiology/Procedures Radiology/Procedures [] CT ABDOMEN+PELVIS WO Clinical Indication: Reason: Severe right flank pain Hx: Multiplt bilateral kidney stones / Spl. Instructions: / History: Comparison: CT abdomen and pelvis without contrast December 20162019. Technique: Helical CT imaging of the abdomen and pelvis is performed without IV or oral contrast. Findings: 2 sub-5 mm pulmonary nodules in the left lower lobe are stable. There is a 4 mm nodule the right lower lobe, not previously seen, image 6. No lung consolidation. Cardiac size normal. Cholecystectomy. The liver, spleen, pancreas, adrenal glands, and abdominal aorta are normal. There is no hydronephrosis or ureteral calculus. No bilateral nonobstructing renal calculi are redemonstrated. There is no perinephric stranding. No obvious abnormality of the stomach. There is no dilated small bowel. There is no colon wall thickening. The appendix is not identified, no secondary signs of appendicitis. There is no abdominal adenopathy or free fluid. The urinary bladder is normal. Uterus is unremarkable. Ovaries are symmetric in size. There is no pelvic free fluid. Transitional lumbosacral anatomy. No acute bone abnormality. IMPRESSION: 1. No acute abdominal or pelvic abnormality. No obstructive uropathy. 2. Multiple bilateral nonobstructing renal calculi. 3. There is a new noncalcified 4 mm nodule in the right lower lobe. Consider CT chest follow-up in 12 months if patient has risk factors for lung malignancy, otherwise no follow-up is required per Fleischner Society guidelines. Electronically signed by: Reginaldo Aldana MD (10/14/2020 7:48 PM) [facility] Heart Score Risk Factors: Risk Factors: DM, Current or recent (<one month) smoker, HTN, HLP, family history of CAD, obesity. Risk Scores: Risk Factors: DM, Current or recent (<one month) smoker, HTN, HLP, family history of CAD, obesity. Course & Med Decision Making Course & Med Decision Making Patient is a 39-year-old female who presents with right flank pain with associated nausea and hematuria and history of renal lithiasis Vital signs notable for tachycardia. Physical exam noted above. Given Zofran for nausea and oral pain medication. [] Laboratory analysis not concerning. Urinalysis contaminated and patient is having no urinary symptoms. CT with no obstructive renal lithiasis/ureterolithiasis. Does have renal lithiasis however and recommended follow-up CT. Advised to follow-up with primary care first thing tomorrow to set up a follow- up visit. Gave strict return precautions to the ED. Patient grateful, verbalized understanding and agreed with plan of discharge Dragon Disclaimer Dragon Disclaimer This electronic medical record was generated, in whole or in part, using a voice recognition dictation system. Departure Departure: Impression: Primary Impression: Flank pain Additional Impression: Renal lithiasis Disposition: 01 DC HOME SELF CARE/HOMELESS Condition: GOOD Referrals: PCP,MICHEAL (PCP) Patient Instructions: Diet for Kidney Stones, Kidney Stones Problem Qualifiers VANITA RIVERA MD Oct 14, 2020 18:28
[2020-10-14] MEDS ORDERED: ONDANSETRON ODT 4 MG TAB.RAPDIS PO ONE (18:30)
[2020-10-14] MEDS ORDERED: oxyCODONE/APAP 5/325 1 TAB TABLET PO ONE (18:30)
[2020-10-14 19:10] LABS: BASO % 0 % (0-3); EOS # 0.3 x10^3/uL (0.0-0.7); EOS % 3 % (0-3); HEMOGLOBIN 10.7 g/dL (12.0-15.5); LYMPH # 2.3 x10^3/uL (1.0-4.8); LYMPH % 21 % (24-48); MEAN CORPUSCULAR HEMOGLOBIN 22 pg (25-35); MEAN CORPUSCULAR HGB CONC 31 g/dL (31-37); MEAN CORPUSCULAR VOLUME 71 fL (79-100); MONO # 0.7 x10^3/uL (0.0-1.1); MONO % 7 % (0-9); NEUT # 7.4 x10^3uL (1.8-7.7); NEUT % 69 % (31-73); PLATELET COUNT 227 x10^3/uL (140-400); RED BLOOD COUNT 4.95 x10^6/uL (3.50-5.40); RED CELL DISTRIBUTION WIDTH 21.1 % (11.5-14.5); WHITE BLOOD COUNT 10.7 x10^3/uL (4.0-11.0)
[2020-10-14 19:21] LABS: CALCIUM 8.8 mg/dL (8.5-10.1); CREATININE 0.8 mg/dL (0.6-1.0); GFR 80.3; POTASSIUM 3.7 mmol/L (3.5-5.1)
[2020-10-14 19:27] LABS: ALBUMIN 3.4 g/dL (3.4-5.0); ALBUMIN/GLOBULIN RATIO 0.9 (1.0-1.7); TOTAL BILIRUBIN 0.2 mg/dL (0.2-1.0)
[2020-10-14] MEDS ORDERED: CEPHALEXIN 250 MG CAPSULE PO ONE (19:30)
--- NOTE | 2020-10-14 19:51 | RAD ---
PQRS Compliance Statement: One or more of the following individualized dose reduction techniques were utilized for this examinat ion: 1. Automated exposure control 2. Adjustment of the mA and/or kV according to patient size 3. Use of iterative reconstruction technique CT ABDOMEN+PELVIS WO Clinical Indication: Reason: Severe right flank pain Hx: Multiplt bilateral kidney stones / Spl. Inst ructions: / History: Comparison: CT abdomen and pelvis without contrast December 20162019. Technique: Helical CT imaging of the abdomen and pelvis is performed without IV or oral contrast. Findings: 2 sub-5 mm pulmonary nodules in the left lower lobe are stable. There is a 4 mm nodule the right lowe r lobe, not previously seen, image 6. No lung consolidation. Cardiac size normal. Cholecystectomy. The liver, spleen, pancreas, adrenal glands, and abdominal aorta are normal. There i s no hydronephrosis or ureteral calculus. No bilateral nonobstructing renal calculi are redemonstrate d. There is no perinephric stranding. No obvious abnormality of the stomach. There is no dilated small bowel. There is no colon wall thicke jesús. The appendix is not identified, no secondary signs of appendicitis. There is no abdominal adeno pj or free fluid. The urinary bladder is normal. Uterus is unremarkable. Ovaries are symmetric in size. There is no pel vangie free fluid. Transitional lumbosacral anatomy. No acute bone abnormality. IMPRESSION: 1. No acute abdominal or pelvic abnormality. No obstructive uropathy. 2. Multiple bilateral nonobstructing renal calculi. 3. There is a new noncalcified 4 mm nodule in the right lower lobe. Consider CT chest follow-up in 1 2 months if patient has risk factors for lung malignancy, otherwise no follow-up is required per Flei schner Society guidelines. Electronically signed by: Reginaldo Aldana MD (10/14/2020 7:48 PM) [facility]
[2020-10-14 20:02] LABS: PLT ESTIMATE ADEQUATE (ADEQUATE)
[2020-10-14 20:03] LABS: ANISOCYTOSIS MOD; HYPOCHROMIA MOD; MICROCYTOSIS MOD
[2020-10-14 20:36] VITALS: BP 135/85
== END 2020-10-14 20:36 | disposition home or self-care (01) ==
LOC: ER 17:19
DX: N20.0 Calculus of kidney (principal); F17.200 Nicotine dependence, unspecified, uncomplicated; Z87.442 Personal history of urinary calculi; Z90.49 Acquired absence of other specified parts of digestive tract; Z98.51 Tubal ligation status; Z98.890 Other specified postprocedural states
CPT/HCPCS: 36415; 74176; 80053; 81001; 81025; 83690; 85025; 87086; 99284; Q0162

== ENCOUNTER 2021-08-16 18:49 | Emergency (ER) | payer OTHER ==
[~2021-08-16] VITALS: Ht 165.1 cm; Wt 86.0 kg
[~2021-08-16 18:49] MED LIST changes: -CYCL-331 PO; +CYCL10TA19 PO
[2021-08-16 19:31] VITALS: BP 127/83
--- NOTE | 2021-08-16 20:03 | PHYS DOC ---
Past History Past Medical History: Kidney Stones (EDDIE BAY APRN) Past Surgical History: Cholecystectomy, , Tubal ligation, Other (EDDIE BAY APRN) Smoking: Less than 1pk/day Alcohol Use: None Drug Use: None (EDDIE BAY APRN) General Adult EDM: Chief Complaint: FLANK PAIN HPI: HPI: Patient is a 40-year-old female who presents emergency department for left flank pain that started around noon today. She rates pain 7 out of 10. Does not radiate. She is also reporting dysuria. She is taking ibuprofen and Tylenol without any relief. She denies any nausea, vomiting, urinary urgency, hematuria, blood in her stools or vomit, fevers. (EDDIE BAY APRN) Review of Systems: Review of Systems: Constitutional: See HPI GI: See HPI : See HPI Musculoskeletal: See HPI (EDDIE BAY APRN) Allergies: Allergies: Allergies Coded Allergies Type Severity Reaction Last Updated Verified No Known Drug Allergies 12/14/17 No (EDDIE BAY APRN) Physical Exam: PE: Constitutional: Well developed, well nourished, no acute distress, non-toxic appearance. [] HENT: Normocephalic, atraumatic, bilateral external ears normal, oropharynx moist, no oral exudates, nose normal. [] Eyes: PERRL, EOMI, conjunctiva normal, no discharge. [] Neck: Normal range of motion, no tenderness, supple, no stridor. [] Cardiovascular:Heart rate regular rhythm, no murmur [] Lungs & Thorax: Bilateral breath sounds clear to auscultation [] Abdomen: Bowel sounds normal, soft, no tenderness, no masses, no pulsatile javier s. [] Skin: Warm, dry, no erythema, no rash. [] Back: No tenderness, left-sided CVA tenderness. [] Extremities: No tenderness, no cyanosis, no clubbing, ROM intact, no edema. [] Neurologic: Alert and oriented X 3, normal motor function, normal sensory function, no focal deficits noted. [] Psychologic: Affect normal, judgement normal, mood normal. [] (EDDIE BAY APRN) Current Patient Data: Labs: Laboratory Tests Test 08/16/21 19:41 08/16/21 19:46 08/16/21 21:22 Urine Collection Type Unknown Urine Color Yellow Urine Clarity Clear Urine pH 6.0 Urine Specific [place] 1.020 Urine Protein Neg Urine Glucose (UA) Neg mg/dL Urine Ketones (Stick) Neg mg/dL Urine Blood Neg Urine Nitrite Neg Urine Bilirubin Neg Urine Urobilinogen Dipstick 0.2 mg/dL Urine Leukocyte Esterase Neg Urine RBC 0 /HPF Urine WBC Rare /HPF Urine Squamous Epithelial Cells Occ /LPF Urine Bacteria 0 /HPF Bedside Urine HCG, Qualitative hcg negative White Blood Count 9.6 x10^3/uL Red Blood Count 4.40 x10^6/uL Hemoglobin 9.3 g/dL Hematocrit 30.2 % Mean Corpuscular Volume 69 fL Mean Corpuscular Hemoglobin 21 pg Mean Corpuscular Hemoglobin Concent 31 g/dL Red Cell Distribution Width 19.5 % Platelet Count 258 x10^3/uL Neutrophils (%) (Auto) 64 % Lymphocytes (%) (Auto) 24 % Monocytes (%) (Auto) 9 % Eosinophils (%) (Auto) 3 % Basophils (%) (Auto) 0 % Neutrophils # (Auto) 6.2 x10^3uL Lymphocytes # (Auto) 2.3 x10^3/uL Monocytes # (Auto) 0.8 x10^3/uL Eosinophils # (Auto) 0.3 x10^3/uL Basophils # (Auto) 0.0 x10^3/uL Platelet Estimate Pending Sodium Level 141 mmol/L Potassium Level 3.8 mmol/L Chloride Level 105 mmol/L Carbon Dioxide Level 24 mmol/L Anion Gap 12 Blood Urea Nitrogen 11 mg/dL Creatinine 0.9 mg/dL Estimated GFR (Cockcroft-Gault) 69.7 BUN/Creatinine Ratio 12 Glucose Level 101 mg/dL Calcium Level 8.4 mg/dL Total Bilirubin Pending Aspartate Amino Transf (AST/SGOT) Pending Alanine Aminotransferase (ALT/SGPT) Pending Alkaline Phosphatase Pending Total Protein Pending Albumin Pending Albumin/Globulin Ratio Pending Current Medications Medications (Trade) Dose Ordered Sig/Linda Route PRN Reason Start Time Stop Time Status Last Admin Dose Admin Sodium Chloride 1,000 ml @ 1,000 mls/hr 1X ONCE IV 08/16/21 20:30 08/16/21 21:29 DC Fentanyl Citrate (Fentanyl 2ml Vial) 50 mcg 1X ONCE IVP 08/16/21 20:30 08/16/21 20:31 DC Laboratory Tests Test 08/16/21 19:46 POC Urine HCG, Qualitative hcg negative (Negative) Vital Signs: Vital Signs Date Time Temp Pulse Resp B/P (MAP) Pulse Ox O2 Delivery O2 Flow Rate FiO2 08/16/21 19:31 98.4 94 16 127/83 (98) 99 Room Air (EDDIE BAY APRN) EKG: EKG: [] (EDDIE BAY APRN) Radiology/Procedures: Radiology/Procedures: []PROCEDURE: CT ABDOMEN PELVIS WO CONTRAST INDICATION: Reason: l. flank pain, hx kidney stones / Spl. Instructions: / History: COMPARISON: October 14, 2020 TECHNIQUE: Axial CT images were obtained through the abdomen and pelvis without intravenous contrast. One or more of the following individualized dose reduction techniques were utilized for this examination: 1. Automated exposure control; 2. Adjustment of the mA and/or kV according to patient size; 3. Use of iterative reconstruction technique. FINDINGS: 4 mm nodule at the right lower lung again seen. There is also a couple of 2 mm nodules at the left lung base again seen. Fat-containing left inguinal hernia, small. Vascular: No abdominal aortic aneurysm. Hepatobiliary: Postcholecystectomy changes. Liver prominent in size. Pancreas: Not well evaluated without contrast. Spleen: Spleen is prominent in size. Renal/Bladder: Multiple bilateral nonobstructive renal stones. Mild left-sided hydronephrosis and hydroureter with 4 mm stone at the left ureterovesicular junction. Urinary bladder is largely decompressed with some prominence the wall but this could be from lack of distention. Exophytic lesion off of the right kidney which appears higher than simple density measuring approximately 10 mm. Indeterminate but appear similar to prior. Gastrointestinal: No periappendiceal inflammatory changes. Dominant follicle or small cyst left ovary. Degenerative changes the spine with multilevel central canal and neural foraminal stenosis. IMPRESSION: * Mild left-sided hydronephrosis and hydroureter with left ureterovesicular junction stone. There are multiple additional nonobstructive bilateral renal stones. Electronically signed by: Penny Mcintyre MD (08/16/2021 9:19 PM) [id number] [id number] DICTATED AND SIGNED BY: PENNY MCINTYRE MD DATE: 08/16/212105 CC: EMERGENCY,DEPARTMENT; EDDIE BAY APRN; PCP,NO ~MTH0 0 (EDDIE BAY APRN) Heart Score: C/O Chest Pain: N/A Risk Factors: Risk Factors: DM, Current or recent (<one month) smoker, HTN, HLP, family history of CAD, obesity. Risk Scores: Score 0 - 3: 2.5% MACE over next 6 weeks - Discharge Home Score 4 - 6: 20.3% MACE over next 6 weeks - Admit for Clinical Observation Score 7 - 10: 72.7% MACE over next 6 weeks - Early Invasive Strategies (EDDIE BAY APRN) Course & Med Decision Making: Course & Med Decision Making Pertinent Labs and Imaging studies reviewed. (See chart for details) [] Patient presents to the emergency department for left flank pain with urinary dysuria. Urinalysis was performed that did not show any acute findings or infection. Patient CT scan of her abdomen and pelvis showed a 4 mm stone with mild left hydronephrosis and hydroureter. Blood work unremarkable. Patient was treated with IV fluids and pain medication. Patient's vital signs are stable, she is in no acute distress. She is afebrile. Patient reports improvement in pain following treatment in the emergency department. Patient will be discharged home with pain medication and Flomax. Patient was given follow-up information for Dr. Lam with urology. I discussed with patient all findings and diagnostic testing as well as the need to follow-up with PCP for further evaluation and treatment or return to the ER if any new or worsening symptoms. Strict return precautions were also discussed at length. Patient voiced understanding and agreement with the plan. Patient is hemodynamically stable at the time of disposition. (EDDIE BAY APRN) Dragon Disclaimer: Dragon Disclaimer: This electronic medical record was generated, in whole or in part, using a voice recognition dictation system. (EDDIE BAY APRN) Departure Departure: Impression: Primary Impression: Kidney stone Disposition: 01 HOME / SELF CARE / HOMELESS Condition: GOOD Referrals: PCP,NO (PCP) Patient Instructions: Kidney Stones Additional Instructions: You were seen in the emergency department for left flank pain. Your urine did not have any infection. Your CT scan of your abdomen and pelvis did show a 4 mm kidney stone on the left side. Please increase your fluids at home. Please strain your urine. You are being discharged home with a pain medication called [place], this is hydrocodone and Tylenol in combination tablet. Do not take any additional Tylenol with this medication. This medication may cause sedation so do not take when you need to be alert, driving a vehicle or with alcohol. You are also being discharged home with Flomax which is medication to dilate the ureters to help the stone pass. Please follow-up with Dr. Lam with urology by calling [phone] follow-up appointment. Please call him tomorrow morning. Return to the emergency department if you develop high fevers refractory to treatment, intractable nausea or vomiting, worsening of your pain, blood in your stools or vomit. Scripts Hydrocodone Bit/Acetaminophen (HYDROCODONE-APAP 5-325 ) 1 Each Tablet 1 TAB PO PRN Q6HRS PRN for PAIN for 2 Days, #8 TAB 0 Refills Prov: EDDIE BAY APRN 08/16/21 Tamsulosin Hcl (FLOMAX) 0.4 Mg Cap.er.24h 1 CAP PO DAILY for kidney stone for 7 Days, #7 CAP 0 Refills Prov: EDDIE BAY APRN 08/16/21 Attending Signature Attending Signature I have participated in the care of this patient and I have reviewed and agree with all pertinent clinical information above including history, exam, and recommendations. (JULIANE POP MD) EDDIE BAY APRN Aug 16, 2021 20:03 JULIANE POP MD Aug 17, 2021 19:07
[2021-08-16 20:07] LABS: BACTERIA,URINE 0 /HPF (0-FEW); BILIRUBIN,URINE NEG (NEG); CLARITY,URINE CLEAR; COLOR,URINE YELLOW; GLUCOSE,URINE NEG (NEG); NITRITE,URINE NEG (NEG); RBC,URINE 0 /HPF (0-2); SQUAMOUS EPITHELIAL CELL,UR OCC /LPF; UROBILINOGEN,URINE 0.2 mg/dL (0.2 mg/dL); WBC,URINE RARE /HPF (0-4)
[2021-08-16] MEDS ORDERED: IV NORMAL SALINE 1,000ML 1,000 ML IV ONE (20:30)
--- NOTE | 2021-08-16 21:21 | RAD ---
INDICATION: Reason: l. flank pain, hx kidney stones / Spl. Instructions: / History: COMPARISON: October 14, 2020 TECHNIQUE: Axial CT images were obtained through the abdomen and pelvis without intravenous contrast. One or more of the following individualized dose reduction techniques were utilized for this examinat ion: 1. Automated exposure control; 2. Adjustment of the mA and/or kV according to patient size; 3 . Use of iterative reconstruction technique. FINDINGS: 4 mm nodule at the right lower lung again seen. There is also a couple of 2 mm nodules at the left malik ng base again seen. Fat-containing left inguinal hernia, small. Vascular: No abdominal aortic aneurysm. Hepatobiliary: Postcholecystectomy changes. Liver prominent in size. Pancreas: Not well evaluated without contrast. Spleen: Spleen is prominent in size. Renal/Bladder: Multiple bilateral nonobstructive renal stones. Mild left-sided hydronephrosis and hyd roureter with 4 mm stone at the left ureterovesicular junction. Urinary bladder is largely decompress ed with some prominence the wall but this could be from lack of distention. Exophytic lesion off of t he right kidney which appears higher than simple density measuring approximately 10 mm. Indeterminate but appear similar to prior. Gastrointestinal: No periappendiceal inflammatory changes. Dominant follicle or small cyst left ovary . Degenerative changes the spine with multilevel central canal and neural foraminal stenosis. IMPRESSION: * Mild left-sided hydronephrosis and hydroureter with left ureterovesicular junction stone. There a re multiple additional nonobstructive bilateral renal stones. Electronically signed by: Declan Sanders MD (08/16/2021 9:19 PM) [id number]
[2021-08-16] MEDS ORDERED: TAMS0.4C97 PO (21:31)
[2021-08-16] MEDS ORDERED: HYDR-2155 PO (21:31)
[2021-08-16 21:44] LABS: BASO % 0 % (0-3); EOS # 0.3 x10^3/uL (0.0-0.7); EOS % 3 % (0-3); HEMATOCRIT 30.2 % (36.0-47.0); HEMOGLOBIN 9.3 g/dL (12.0-15.5); LYMPH # 2.3 x10^3/uL (1.0-4.8); LYMPH % 24 % (24-48); MEAN CORPUSCULAR HEMOGLOBIN 21 pg (25-35); MEAN CORPUSCULAR HGB CONC 31 g/dL (31-37); MEAN CORPUSCULAR VOLUME 69 fL (79-100); MONO # 0.8 x10^3/uL (0.0-1.1); MONO % 9 % (0-9); NEUT # 6.2 x10^3uL (1.8-7.7); NEUT % 64 % (31-73); PLATELET COUNT 258 x10^3/uL (140-400); RED CELL DISTRIBUTION WIDTH 19.5 % (11.5-14.5); WHITE BLOOD COUNT 9.6 x10^3/uL (4.0-11.0)
[2021-08-16 21:52] LABS: CALCIUM 8.4 mg/dL (8.5-10.1); CREATININE 0.9 mg/dL (0.6-1.0); GFR 69.7; POTASSIUM 3.8 mmol/L (3.5-5.1)
[2021-08-16 22:00] LABS: ALBUMIN 3.8 g/dL (3.4-5.0); ALBUMIN/GLOBULIN RATIO 1.1 (1.0-1.7); TOTAL BILIRUBIN 0.2 mg/dL (0.2-1.0); TOTAL PROTEIN 7.3 g/dL (6.4-8.2)
[2021-08-16 22:02] LABS: ANISOCYTOSIS SLIGHT; HYPOCHROMIA SLIGHT; MICROCYTOSIS MOD; PLT ESTIMATE ADEQUATE (ADEQUATE)
== END 2021-08-16 22:11 | disposition home or self-care (01) ==
LOC: ER 18:49
DX: R10.9 Unspecified abdominal pain (principal); R30.0 Dysuria; Z87.442 Personal history of urinary calculi; Z98.51 Tubal ligation status; Z90.49 Acquired absence of other specified parts of digestive tract
CPT/HCPCS: 36415; 74176; 80053; 81001; 81025; 85025; 96374; 99284; J3010; J7030

== ENCOUNTER 2021-08-31 18:09 | Emergency (ER) | payer OTHER ==
[~2021-08-31] VITALS: Ht 165.1 cm; Wt 86.0 kg
[~2021-08-31 18:09] MED LIST changes: +HYDR-2155 PO; +TAMS0.4C97 PO
[2021-08-31 19:27] VITALS: BP 124/70
== END 2021-08-31 22:10 | disposition left against medical advice (07) ==
LOC: ER 18:09
DX: R10.9 Unspecified abdominal pain (principal); Z53.21 Procedure and treatment not carried out due to patient leaving prior to being seen by health care provider